=== PATIENT | female | born 1945 | race Caucasian/White ===

== ENCOUNTER 2017-10-16 23:08 | Inpatient (IN) | payer BC, MEDICARE ==
[2017-10-16] MEDS ORDERED: Morphine 4 MG/ML VIAL ONE ×2 (23:20→23:44)
[2017-10-16] MEDS ORDERED: CEFAZOLIN/Water 2 GM/20 ML SYRINGE ONE (23:26)
--- NOTE | 2017-10-16 23:57 | RAD ---
RIGHT KNEE TWO VIEWS 10/16/17 HISTORY: Right knee injury. FINDINGS: Total knee prosthesis is in place without perihardware lucency. Osseous structures are demineralized. No acute fracture or dislocation are apparent. IMPRESSION: 1. Right knee prosthesis is in good radiographic position. No acute osseous abnormalities are de monstrated. 2. Osteoporosis. POS: [facility]
--- NOTE | 2017-10-16 23:59 | RAD ---
LEFT LOWER LEG TWO VIEWS 10/16/17 HISTORY: Fall. Left leg injury. FINDINGS: Comminuted fractures involving the distal tibial and fibular metadiaphyses include full shaft width l ateral displacement of each major distal fragment and prominent apex medial angulation. Soft tissue g as is apparent with an open fracture evident. Osseous structures are demineralized. IMPRESSION: Open fracture distal left lower leg involving the tibia and fibula. POS: [facility]
[2017-10-17] MEDS ORDERED: Midazolam HCl 2 mg/2 ml Vial ONE (00:11)
[2017-10-17] MEDS ORDERED: Fentanyl 250 MCG/5 ML VIAL ONE (00:11)
[2017-10-17 00:20] LABS: #Lymphocytes 1.2 thou/uL (1.20-3.40); #Monocytes 0.5 thou/uL (0.11-0.59); #Neutrophils 10.5 thou/uL (1.40-6.50); %Basophils 0.2 % (0.0-1.0); %Eosinophils 0.2 % (0.0-10.0); %Lymphocytes 9.6 % (21.0-51.0); %Monocytes 4.3 % (0.0-10.0); Hematocrit 36.9 % (36.0-47.0); Mean Platelet Volume 6.5 fL (7.4-10.4); Red Blood Cell (RBC) Count 3.89 mill/uL (4.20-5.40); White Blood Cell (WBC) Count 12.2 thou/uL (4.8-10.8)
[2017-10-17 00:32] LABS: ALT (SGPT) 17 U/L (8-55); AST (SGOT) 17 U/L (5-34); Alkaline Phosphatase 71 U/L (40-150); Anion Gap 13 mmol/L (10-20); BUN (Urea Nitrogen) 21 mg/dL (9.8-20.1); Bilirubin, Total Less than 0.2 mg/dL (0.2-1.2); Calc. Creatinine Clearance 0 mL/min (70-130); Calcium 8.7 mg/dL (7.8-10.44); Carbon Dioxide 21 mmol/L (23-31); Chloride 110 mmol/L (98-107); Estimated GFR-MDRD 80; Globulin 2.4 g/dL (2.4-3.5); Protein, Total 6.3 g/dL (6.0-8.3)
[2017-10-17] MEDS ORDERED: Promethazine HCl 25 MG/ML VIAL IM PRN ×2 (02:26→16:38)
[2017-10-17] MEDS ORDERED: Ondansetron HCl/PF 4 MG/2 ML Vial IVP PRN ×3 (02:26→16:38)
[2017-10-17] MEDS ORDERED: Promethazine HCl 25 MG/ML VIAL SLOW IVP PRN (02:26)
[2017-10-17] MEDS ORDERED: Fentanyl 100 MCG/2 ML VIAL ONE ×2 (02:36→02:52)
[2017-10-17] MEDS ORDERED: Dextrose 50% Abboject 50 ML SYRINGE SLOW IVP PRN (03:11)
[2017-10-17] MEDS ORDERED: Insulin Regular 300 UNITS/3 ML VIAL SC PRN (03:11)
[2017-10-17] MEDS ORDERED: Fleet Enema 133 ML BOT PR PRN (03:11)
[2017-10-17] MEDS ORDERED: traMADol HCl 50 MG TAB PO PRN (03:11)
[2017-10-17] MEDS ORDERED: Bisacodyl 10 MG SUPP PR PRN (03:11)
[2017-10-17] MEDS ORDERED: Milk Of Magnesia 30 ML UDCUP PO PRN (03:11)
[2017-10-17] MEDS ORDERED: Ondansetron ODT 4 MG TAB PO PRN (03:11)
[2017-10-17] MEDS ORDERED: Cepastat Lozenges 1 LOZ PO PRN (03:11)
[2017-10-17] MEDS ORDERED: Acetaminophen 325 MG TAB PO PRN (03:11)
[2017-10-17] MEDS ORDERED: HYDROcodone/Acetaminophen 5/325 mg Tablet PO PRN (03:11)
[2017-10-17 03:55] VITALS: BMI 23.1
[2017-10-17] MEDS: HYDROcodone/Acetaminophen 5/325 mg Tablet PO PRN ×2 (04:27→10:27)
[2017-10-17] MEDS: Sodium Chloride 0.9% 1,000 ML IV SCH ×2 (04:37→16:10)
--- NOTE | 2017-10-17 05:01 | PDOC.PN ---
- Subjective Encounter Start Date: 10/17/17 Encounter Start Time: 04:59 Pt seen for management of medical issues, including diabetes mellitus. Denies chest pain, shortness of breath, fevers or chills. - Objective MAR Reviewed: Yes Vital Signs & Weight: Vital Signs (12 hours) Temp Pulse Resp BP Pulse Ox 10/17/17 03:40 98.1 F 95 20 113/65 99 Weight Weight 135 lb Result Diagrams: 10/17/17 00:07 10/17/17 00:07 Phys Exam - Physical Examination Constitutional: NAD HEENT: moist MMs, sclera anicteric Neck: supple Respiratory: clear to auscultation bilateral Cardiovascular: RRR Gastrointestinal: soft, non-tender s/p L ankle surgery Psychiatric: normal affect Skin: no rash Dx/Plan (1) DM2 (diabetes mellitus, type 2) Status: Chronic (2) Dyslipidemia Code(s): E78.5 - HYPERLIPIDEMIA, UNSPECIFIED Status: Chronic (3) Anxiety disorder Code(s): F41.9 - ANXIETY DISORDER, UNSPECIFIED Status: Chronic - Plan PT/OT, DVT proph w/SCDs * . Continue Toujeo insulin, accuchecks, insulin sliding scale. Pt not on statins due to side effects. Continue Zoloft (dose needs to be clarified, will start at 25 mg for now). Code status: full Review of Systems - Review of Systems Respiratory: negative: Cough, Dry, Shortness of Breath, Hemoptysis, SOB with Excertion, Pleuritic Pain, Sputum, Wheezing Cardiovascular: negative: Chest Pain, Palpitations, Orthopnea, Paroxysmal Noc. Dyspnea, Edema, Light Headedness - Medications/Allergies Allergies/Adverse Reactions: Allergies Allergy/AdvReac Type Severity Reaction Status Date / Time penicillin G Allergy Verified 10/17/17 04:12 Medications: Current Medications Acetaminophen (Tylenol) 650 mg PO Q4H PRN PRN Reason: BECERRA/T> 101F/Mild Pain (1-3) Hydrocodone Bitart/Acetaminophen ([place] 5/325) 1 tab PO Q4H PRN PRN Reason: Pain Hydrocodone Bitart/Acetaminophen ([place] 5/325) 2 tab PO Q4H PRN PRN Reason: Pain Last Admin: 10/17/17 04:27 Dose: 2 tab Bisacodyl (Dulcolax) 10 mg CO DAILYPRN PRN PRN Reason: Constipation Cefazolin Sodium (Ancef) 2 gm SLOW IVP 0800,1600,2359 [facility] Stop: 10/18/17 16:01 Dextrose/Water (Dextrose 50%) 25 gm SLOW IVP PRN PRN PRN Reason: Hypoglycemia Enoxaparin Sodium (Lovenox) 30 mg SC 0900 [facility] Fentanyl (Pacu-Sublimaze) 50 mcg SLOW IVP Q10MIN PRN PRN Reason: Moderate to Severe Pain (6-10) Stop: 10/17/17 05:26 Fentanyl (Sublimaze) 50 mcg SLOW IVP Q20M PRN PRN Reason: Severe Pain (7-10) Ferrous Gluconate (Fergon) 324 mg PO BID [facility] Glucagon (Glucagon) 1 mg IM PRN PRN PRN Reason: Hypoglycemia Sodium Chloride (Normal Saline 0.9%) 1,000 mls @ 65 mls/hr IV .[id number] [facility] Last Admin: 10/17/17 04:37 Dose: Not Given Insulin Human Regular (Humulin R) 0 units SC .MILD SLIDING PRN PRN Reason: Mild Correctional Scale Iron/Minerals/Multivitamins (Theragran M) 1 tab PO DAILY [facility] Magnesium Hydroxide (Milk Of Magnesium) 30 ml PO DAILYPRN PRN PRN Reason: Constipation Ondansetron HCl (Pacu-Zofran) 4 mg IVP ONE PRN PRN Reason: Nausea/Vomiting Stop: 10/17/17 05:26 Ondansetron HCl (Zofran Odt) 4 mg PO Q6H PRN PRN Reason: Nausea/Vomiting Ondansetron HCl (Zofran) 4 mg IVP Q6H PRN PRN Reason: Nausea/Vomiting Pneumococcal Polyvalent Vaccine (Pneumovax 23) 0.5 ml IM .ONCE ONE Stop: 10/17/17 09:01 Promethazine HCl (Pacu-Phenergan) 6.25 mg SLOW IVP ONE PRN PRN Reason: Nausea/Vomiting Stop: 10/17/17 05:26 Promethazine HCl (Pacu-Phenergan) 6.25 mg IM ONE PRN PRN Reason: Nausea/Vomiting Stop: 10/17/17 05:26 Senna/Docusate Sodium (Senokot S) 2 tab PO BID [facility] Sertraline HCl (Zoloft) 25 mg PO DAILY [facility] Sodium Biphosphate/Sodium Phosphate (Fleet Enema) 133 ml CO DAILYPRN PRN PRN Reason: Constipation Sodium Chloride (Flush - Normal Saline) 10 ml IVF PRN PRN PRN Reason: Saline Flush Throat Lozenges (Cepastat Lozenges) 1 jersey PO Q2H PRN PRN Reason: Sore Throat Tramadol HCl (Ultram) 50 mg PO Q6H PRN PRN Reason: Mild Pain (1-3) Tramadol HCl (Ultram) 100 mg PO Q6H PRN PRN Reason: Moderate Pain (4-6)
[2017-10-17] MEDS: Fentanyl 100 MCG/2 ML VIAL SLOW IVP PRN ×7 (06:36→14:33)
[2017-10-17] MEDS: Senokot S 8.6-50 MG TAB PO SCH ×2 (08:46→21:06)
[2017-10-17] MEDS: traMADol HCl 50 MG TAB PO PRN ×2 (08:47→16:05)
[2017-10-17] MEDS: CEFAZOLIN/Water 2 GM/20 ML SYRINGE SLOW IVP SCH ×2 (08:48→16:06)
[2017-10-17] MEDS: Ferrous Gluconate 324 MG TAB PO SCH ×2 (08:48→21:07)
[2017-10-17] MEDS: Enoxaparin Sodium 30 MG/0.3 ML SYRINGE SC SCH (08:54)
[2017-10-17] MEDS: Multivitamin W/ Minerals 1 TAB PO SCH (08:55)
--- NOTE | 2017-10-17 09:01 | RAD ---
INTRAOPERATIVE FLUOROSCOPIC IMAGES LEFT TIBIA AND FIBULA: DATE: 10/17/17. HISTORY: Left tibial and fibular fracture. FINDINGS: Four intraoperative fluoroscopic images of the left tibia and fibula are submitted. There is an exte rnal fixation device overlying the tibia and fibula on the provided images. There is improvement in alignment of the comminuted fracture involving the distal left tibia and fibula. There are metallic densities overlying the proximal tibia as well as the calcaneus. IMPRESSION: External fixation device transfixing the left tibia and fibula with improvement in alignment of the c omminuted fractures distal left tibia and fibula. POS: [facility]
--- NOTE | 2017-10-17 09:28 | PDOC.EVN ---
Event Note - Event Note Event Note: Pt seen and examined. IM team following for medical mamangement .s/p Sx for left ankle fracture. feels well. pain under control. chart ,labs reviewed. Pt educated about ISS prn. Will start her frieda emed of trulicity on Mondays. Pt can take her own. Order AM labs. Will follow.
--- NOTE | 2017-10-17 11:00 | HP ---
CHIEF COMPLAINT: Left lower extremity pain. HISTORY OF PRESENT ILLNESS: Ms. Blanton is a [id number] status post fall approximately 3 feet [place] 7[place]10 on 10/16/2017. She had to drag herself into the house and was unable to call. She waited until family showed up and called the EMS and she was noted to have an open fracture and I was consulted by the emergency medicine for evaluation of open fracture. The patient was seen with severe pain that is 10/10 and resting in bed. The patient was alert and oriented and talking. Given the patient's open fracture as well as radiographic changes, I would await for immediate washout I&D with possible external fixator application of vacuum. The patient and family agreed and elected to proceed. PAST MEDICAL HISTORY: Includes diabetes and osteoporosis. PAST SURGICAL HISTORY: Right total knee arthroplasty and hysterectomy. CURRENT MEDICATIONS: Please see patient's admission full list. ALLERGIES: PENICILLIN, rash. No history of anaphylaxis. SOCIAL HISTORY: Nondrinker, nonsmoker, and retired. The patient lives in [place]. REVIEW OF SYSTEMS: Negative except for left lower extremity. PHYSICAL EXAMINATION: VITAL SIGNS: Afebrile, O2 saturation 98%, pulse rate 85, respiratory rate 18, blood pressure 142/84. GENERAL: Elderly female in no acute distress, resting comfortably in bed. HEENT: Normocephalic, atraumatic. LUNGS: Bilateral symmetric chest rise and unlabored. HEART: Regular rate. ABDOMEN: Soft. EXTREMITIES: Left lower extremity, she had a 6 cm laceration noted on the medial aspect of her tibia with exposed tibia within the wound. She has brisk cap refill, but difficult to palpate pulses. Sensation intact and appeared to be in S1 distribution. She will wiggle and flex her toes. DIAGNOSTIC STUDIES: Radiographs of her left lower extremity showed pilon variant of her left distal tibia with comminuted distal fibular fracture consistent with C type pilon variant AO classification. IMPRESSION: Left open pilon fracture with comminuted fibula and tibia fracture , osteoporotic, diabetic. ASSESSMENT AND PLAN: The patient was taken to the OR for an incision and drainage with an external fixator. The patient received antibiotics, Ancef and tetanus up to date. The patient will be admitted and patient likely will require definitive fixation. Case was discussed with primary care and with the family and the patient consented and was taken emergently to the OR for definitive care. LULY
[2017-10-17] MEDS ORDERED: HYDROcodone/Acetaminophen 10/325 mg Tablet PO PRN ×2 (11:15)
[2017-10-17] MEDS ORDERED: Zolpidem Tartrate 5 MG TAB PO PRN ×2 (11:16→16:38)
[2017-10-17] MEDS ORDERED: diphenhydrAMINE 25 MG CAP PO PRN ×2 (11:16→16:38)
[2017-10-17] MEDS: Cyclobenzaprine 10 MG TAB PO PRN (11:45)
--- NOTE | 2017-10-17 12:19 | OP ---
DATE OF PROCEDURE: 10/17/2017 PREOPERATIVE DIAGNOSES: Left distal tibia fracture, distal fibular fracture with comminution in distal tibial plafond, fibula and tibia comminution with open Gustilo-Milton grade II fracture, 6 cm laceration. POSTOPERATIVE DIAGNOSIS: Left distal tibia fracture, distal fibular fracture with comminuted distal tibial plafond, fibula and tibia comminution with open Gustilo-Milton grade II fracture, 6 cm laceration. PROCEDURES PERFORMED: 1. I&D open fracture. 2. External fixator uniplane. 3. Closure of 6 cm laceration. 4. Application of skin incisional wound VAC. STAFF: Ayden Herbert M.D. BROKERAGE COORDINATOR: None. ANESTHESIA: Dr. Braden. The patient received general endotracheal intubation. ESTIMATED BLOOD LOSS: 75 mL. TOURNIQUET TIME: None. IMPLANTS: Two 5-0 pins, a 6-hole combi clamp, 2 pin-to-bar clamps and a calcaneal pin. ANTIBIOTICS: Ancef 2 grams. COMPLICATIONS: None. HISTORY OF PRESENT ILLNESS: Ms. Blanton is a 71-year-old female who fell at 7:10 yesterday evening sustaining an open fracture. The patient did so herself and states that she did not get urine or feces into the wound. The patient has history of diabetes as well as osteoporosis. The patient's family was gone. She was babysitting a 1-year-old, and she hurt her leg and could not get to the phone until her family got home. The patient presented with elevated pain. She has soft compartments. I discussed with the family given the chronicity and the concern, plan would be for an I&D of the wound, likely an external fixator with multiplanar and closure of the wound with delayed fixation. I showed the pictures to the family. I discussed the severity of injury as well as the patient's bone density. I discussed risks and benefits of surgery, pain , scar. I discussed that there are risks include need for further surgery, should not be the definitive fixation, there is risk of pin site issues and we emergently went to the OR to help to reduce and decrease the patient's pain. PROCEDURE NOTE: After a timeout was performed designating the patient's, left lower extremity as the operative site based on sight, consents, markings. The patient's leg was prepped with Betadine and copiously irrigated the wound with 10 liters of water. I used a curette to curette the bone. I saw no gross debris within the wound, it appeared completely clean. There was an oblique wound at the fracture site about 1.5 cm above the medial malleolus. There were some skin narrowing. I was concerned about doing definitive fixation at this time tonight because of the soft tissue envelope, I would like to see demarcation before we progress. The patient has severe comminution of the distal tibia as well as some intra-articular split of the tibial plafond. There was also severe comminution of the fibula from just a twisting fall like for soft tissue rest. She likely needs a large plating system and need to ensure that we have good soft tissue envelope for her left ankle. After washing, she was feeling grossly stable. We moved distally from the medial aspect, localized position within the calcaneus, but my position was ensured that I was in line with the distal ankle. I liked he overall alignment and drilled the pin through a stab incision laterally, passed it through, ensured we had good fixation of the calcaneus, I then moved proximally. Just off the medial border of the iliac crest, I placed two 5-0 pins, I used my 6-hole clamp. I made stab incisions, drilled bicortically and placed my self-drilling self-tapping screws and after placing 5 mm pins within my 6-hole clamp, after that we then placed 4 mm rods from the pin-to-bar clamps on the calcaneal pins to the 6-hole clamp. We pulled the patient into traction dorsiflexing her foot, showing on AP and lateral radiographs that she had regained length. She had so much severe comminution, it was hard to keep her stable on varus and valgus, what we felt we had to reduce her in an adequate position, we clamped down and closed it into place tightening all positions on the splint. Being happy with this, we then washed 100 cc more through the wound and used trauma stitches to close the incision medially, had a nice closure without significant skin tension, we placed an incisional wound VAC in place and placed a posterior splint to keep the patient in dorsiflexion, put some padding behind her heel. The patient will receive 48 hours of antibiotics. She will receive Ancef 2 grams q.8 hours x48 hours. The patient will be placed in a posterior splint with a heel pad. We would like to remove the incision wound VAC in 2 days. Discussed the definitive care with my trauma partners. LULY
[2017-10-17] MEDS ORDERED: diphenhydrAMINE 50 MG/ML VIAL IM PRN (16:38)
[2017-10-17] MEDS ORDERED: diphenhydrAMINE 50 MG/ML VIAL IVP PRN (16:38)
[2017-10-17] MEDS ORDERED: Fentanyl 5000 MCG/250 ML CADD IVPB PRN (16:38)
[2017-10-17] MEDS ORDERED: Naloxone HCl 0.4 mg/ml Vial IV PRN (16:38)
[2017-10-17] MEDS ORDERED: Communication Order-Pharmacy FS SCH (16:45)
[2017-10-17] MEDS ORDERED: PHENYLEPHRINE-NS 100 MCG/ML 10 ML SYRINGE ONE (17:14)
[2017-10-17] MEDS ORDERED: ePHEDrine/0.9% NaCl/PF SYRINGE 50 mg/10 ml ONE (17:14)
[2017-10-17] MEDS ORDERED: Lidocaine 1% PF 5 ML VIAL ONE (17:14)
[2017-10-17] MEDS ORDERED: Propofol 200 MG/20 ML VIAL ONE (17:14)
[2017-10-17] MEDS ORDERED: Succinylcholine Chloride 20 MG/ML 10 ml SYRINGE FS ONE (17:14)
[2017-10-17] MEDS ORDERED: diphenhydrAMINE 50 MG/ML VIAL ONE (17:14)
[2017-10-17] MEDS ORDERED: Ondansetron HCl/PF 4 MG/2 ML Vial ONE (17:14)
[2017-10-18] MEDS: CEFAZOLIN/Water 2 GM/20 ML SYRINGE SLOW IVP SCH ×3 (00:29→16:30)
[2017-10-18 05:13] LABS: #Lymphocytes 1.3 thou/uL (1.20-3.40); #Monocytes 0.6 thou/uL (0.11-0.59); #Neutrophils 5.2 thou/uL (1.40-6.50); %Basophils 0.5 % (0.0-1.0); %Eosinophils 0.4 % (0.0-10.0); %Lymphocytes 18.2 % (21.0-51.0); %Monocytes 8.1 % (0.0-10.0); Mean Platelet Volume 6.2 fL (7.4-10.4); Red Blood Cell (RBC) Count 3.23 mill/uL (4.20-5.40); White Blood Cell (WBC) Count 7.2 thou/uL (4.8-10.8)
[2017-10-18 05:33] LABS: Anion Gap 9 mmol/L (10-20); BUN (Urea Nitrogen) 5 mg/dL (9.8-20.1); Calc. Creatinine Clearance 79 mL/min (70-130); Calcium 8.4 mg/dL (7.8-10.44); Carbon Dioxide 26 mmol/L (23-31); Chloride 106 mmol/L (98-107); Estimated GFR-MDRD 90
[2017-10-18] MEDS: Sodium Chloride 0.9% 1,000 ML IV SCH ×2 (06:18→20:20)
[2017-10-18] MEDS: Senokot S 8.6-50 MG TAB PO SCH ×3 (08:56→20:19)
[2017-10-18] MEDS: Ferrous Gluconate 324 MG TAB PO SCH ×2 (08:56→20:19)
[2017-10-18] MEDS: Enoxaparin Sodium 30 MG/0.3 ML SYRINGE SC SCH (08:56)
[2017-10-18] MEDS: Multivitamin W/ Minerals 1 TAB PO SCH (09:10)
[2017-10-18] MEDS ORDERED: Naloxone HCl 0.4 mg/ml Vial IV PRN (09:28)
[2017-10-18] MEDS ORDERED: diphenhydrAMINE 50 MG/ML VIAL IM/IV PRN (09:28)
[2017-10-18] MEDS ORDERED: Zolpidem Tartrate 5 MG TAB PO PRN (09:28)
[2017-10-18] MEDS ORDERED: Promethazine HCl 25 MG/ML VIAL IM PRN (09:28)
[2017-10-18] MEDS ORDERED: diphenhydrAMINE 25 MG CAP PO PRN (09:28)
[2017-10-18] MEDS: Morphine CADD 1 MG/ML CADD IV PRN (11:04)
--- NOTE | 2017-10-18 11:10 | PDOC.PN ---
- Subjective Encounter Start Date: 10/18/17 Encounter Start Time: 11:09 Subjective: c/o poor sleep and much pain. -: no N/V.no CP/SOB.no fever/chills - Objective MAR Reviewed: Yes Vital Signs & Weight: Vital Signs (12 hours) Temp Pulse Resp BP Pulse Ox 10/18/17 08:00 98.1 F 91 20 106/59 L 94 L 10/18/17 04:22 98.8 F 94 18 116/66 94 L 10/18/17 00:15 98.9 F 87 18 113/71 92 L Weight Admit Weight 135 lb Weight 135 lb I&O: 10/17/17 10/18/17 10/19/17 06:59 06:59 06:59 Intake Total 1740 Output Total 2700 Balance -960 Result Diagrams: 10/18/17 04:36 10/18/17 04:36 Additional Labs: Accuchecks 10/18/17 10/17/17 10/17/17 05:56 20:31 16:09 POC Glucose 127 H 137 H 104 10/17/17 10:54 POC Glucose 112 H Phys Exam - Physical Examination Constitutional: NAD HEENT: PERRLA, moist MMs, sclera anicteric, oral pharynx no lesions Neck: no nodes, no JVD, supple, full ROM Respiratory: no wheezing, no rales, no rhonchi, clear to auscultation bilateral Cardiovascular: RRR, no significant murmur Gastrointestinal: soft, non-tender, no distention, positive bowel sounds Musculoskeletal: no edema, pulses present Neurological: non-focal, normal sensation, moves all 4 limbs Psychiatric: normal affect, A&O x 3 Skin: no rash Dx/Plan (1) Status post ORIF of fracture of ankle Code(s): Z96.7 - PRESENCE OF OTHER BONE AND TENDON IMPLANTS; Z87.81 - PERSONAL HISTORY OF (HEALED) TRAUMATIC FRACTURE Status: Acute (2) Anxiety disorder Code(s): F41.9 - ANXIETY DISORDER, UNSPECIFIED Status: Chronic (3) DM2 (diabetes mellitus, type 2) Status: Chronic (4) Dyslipidemia Code(s): E78.5 - HYPERLIPIDEMIA, UNSPECIFIED Status: Chronic - Plan DVT proph w/SCDs RECYCLING SORTER changed to Morphine.Anesthesia following. -: labs,vitals stable. did not need Insulin so far.sugars controled -: cont Trulicity. next dose tomorrow.. -: will follow * . Review of Systems - Review of Systems Constitutional: negative: Fever, Chills, Sweats, Weakness, Malaise, Other Respiratory: negative: Cough, Dry, Shortness of Breath, Hemoptysis, SOB with Excertion, Pleuritic Pain, Sputum, Wheezing Cardiovascular: negative: Chest Pain, Palpitations, Orthopnea, Paroxysmal Noc. Dyspnea, Edema, Light Headedness, Other Gastrointestinal: negative: Nausea, Vomiting, Abdominal Pain, Diarrhea, Constipation, Melena, Hematochezia, Other Genitourinary: negative: Dysuria, Frequency, Incontinence, Hematuria, Retention , Other Musculoskeletal: negative: Neck Pain, Shoulder Pain, Arm Pain, Back Pain, Hand Pain, Leg Pain, Foot Pain, Other Neurological: negative: Weakness, Numbness, Incoordination, Change in Speech, Confusion, Seizures, Other - Medications/Allergies Allergies/Adverse Reactions: Allergies Allergy/AdvReac Type Severity Reaction Status Date / Time penicillin G Allergy Verified 10/17/17 04:12 Medications: Current Medications Acetaminophen (Tylenol) 650 mg PO Q4H PRN PRN Reason: BECERRA/T> 101F/Mild Pain (1-3) Bisacodyl (Dulcolax) 10 mg DE DAILYPRN PRN PRN Reason: Constipation Cefazolin Sodium (Ancef) 2 gm SLOW IVP 0800,1600,2359 [facility] Stop: 10/18/17 16:01 Last Admin: 10/18/17 08:55 Dose: 2 gm Cyclobenzaprine HCl (Flexeril) 10 mg PO TID PRN PRN Reason: Muscle Spasm Last Admin: 10/17/17 11:45 Dose: 10 mg Dextrose/Water (Dextrose 50%) 25 gm SLOW IVP PRN PRN PRN Reason: Hypoglycemia Diphenhydramine HCl (Benadryl) 25 mg IM/IV Q3H PRN PRN Reason: Itching Diphenhydramine HCl (Benadryl) 25 mg PO Q3H PRN PRN Reason: Itching Enoxaparin Sodium (Lovenox) 30 mg SC 0900 [facility] Last Admin: 10/18/17 08:56 Dose: 30 mg Ferrous Gluconate (Fergon) 324 mg PO BID [facility] Last Admin: 10/18/17 08:56 Dose: 324 mg Glucagon (Glucagon) 1 mg IM PRN PRN PRN Reason: Hypoglycemia Sodium Chloride (Normal Saline 0.9%) 1,000 mls @ 65 mls/hr IV .[id number] [facility] Last Admin: 10/18/17 06:18 Dose: 1,000 mls Insulin Human Regular (Humulin R) 0 units SC .MILD SLIDING PRN PRN Reason: Mild Correctional Scale Iron/Minerals/Multivitamins (Theragran M) 1 tab PO DAILY [facility] Last Admin: 10/18/17 09:10 Dose: 1 tab Ketorolac Tromethamine (Toradol) 15 mg IVP Q6H PRN PRN Reason: Moderate Pain 4-6 Stop: 10/21/17 09:29 Magnesium Hydroxide (Milk Of Magnesium) 30 ml PO DAILYPRN PRN PRN Reason: Constipation Morphine Sulfate (Morphine Cadd) 0 mg IV INF PRN PRN Reason: Pain Naloxone HCl (Narcan) 0.2 mg IV Q5MIN PRN PRN Reason: RR <8 or pt obtun/unarousable Ondansetron HCl (Zofran) 4 mg IVP Q6H PRN PRN Reason: Nausea/Vomiting Dulaglutide ( (Trulicity)) 0 each SC Mo@0900 [facility] Promethazine HCl (Phenergan) 12.5 mg IM Q4H PRN PRN Reason: Nausea/Vomiting Senna/Docusate Sodium (Senokot S) 2 tab PO BID [facility] Last Admin: 10/18/17 09:08 Dose: Not Given Sertraline HCl (Zoloft) 25 mg PO DAILY [facility] Last Admin: 10/18/17 08:56 Dose: 25 mg Sodium Biphosphate/Sodium Phosphate (Fleet Enema) 133 ml DE DAILYPRN PRN PRN Reason: Constipation Sodium Chloride (Flush - Normal Saline) 10 ml IVF PRN PRN PRN Reason: Saline Flush Throat Lozenges (Cepastat Lozenges) 1 jersey PO Q2H PRN PRN Reason: Sore Throat Zolpidem Tartrate (Ambien) 5 mg PO HSPRN PRN PRN Reason: Insomnia
[2017-10-18] MEDS: Ketorolac Tromethamine 30 MG/ML VIAL IVP PRN ×2 (14:00→20:15)
[2017-10-18] MEDS: Ondansetron HCl/PF 4 MG/2 ML Vial IVP PRN (19:51)
[2017-10-19] MEDS: Ketorolac Tromethamine 30 MG/ML VIAL IVP PRN (02:12)
[2017-10-19] MEDS ORDERED: DULAGLUTIDE (TRULICITY) SC SCH (09:00)
[2017-10-19] MEDS: Multivitamin W/ Minerals 1 TAB PO SCH (09:06)
[2017-10-19] MEDS: Senokot S 8.6-50 MG TAB PO SCH ×2 (09:06→21:33)
[2017-10-19] MEDS: Ferrous Gluconate 324 MG TAB PO SCH ×2 (09:06→21:30)
[2017-10-19] MEDS: Enoxaparin Sodium 30 MG/0.3 ML SYRINGE SC SCH (09:08)
[2017-10-19] MEDS: Ondansetron HCl/PF 4 MG/2 ML Vial IVP PRN (10:05)
--- NOTE | 2017-10-19 11:46 | PDOC.PN ---
- Subjective Encounter Start Date: 10/19/17 Encounter Start Time: 11:45 Subjective: feels much better. pain under better control. -: no N/V/D.no chest pain/sob - Objective MAR Reviewed: Yes Vital Signs & Weight: Vital Signs (12 hours) Temp Pulse Resp BP Pulse Ox 10/19/17 09:00 98.9 F 89 18 10/19/17 07:40 98.9 F 89 18 113/45 L 95 10/19/17 04:00 97.4 F L 88 16 109/69 70 L 10/19/17 00:00 98.6 F 89 16 114/64 91 L Weight Admit Weight 135 lb Weight 135 lb I&O: 10/18/17 10/19/17 10/20/17 06:59 06:59 06:59 Intake Total 1740 3030 Output Total 2700 3100 Balance -960 -70 Result Diagrams: 10/18/17 04:36 10/18/17 04:36 Additional Labs: Accuchecks 10/19/17 10/19/17 10/18/17 10:26 05:35 20:24 POC Glucose 112 H 105 123 H 10/18/17 15:53 POC Glucose 175 H Phys Exam - Physical Examination Constitutional: NAD HEENT: PERRLA, moist MMs, sclera anicteric, oral pharynx no lesions Neck: no nodes, no JVD, supple, full ROM Respiratory: no wheezing, no rales, no rhonchi, clear to auscultation bilateral Cardiovascular: RRR, no significant murmur Gastrointestinal: soft, non-tender, no distention, positive bowel sounds Musculoskeletal: no edema, pulses present Post-op Left ankle w screws/rubin Neurological: non-focal, normal sensation, moves all 4 limbs Psychiatric: normal affect, A&O x 3 Dx/Plan (1) Status post ORIF of fracture of ankle Code(s): Z96.7 - PRESENCE OF OTHER BONE AND TENDON IMPLANTS; Z87.81 - PERSONAL HISTORY OF (HEALED) TRAUMATIC FRACTURE Status: Acute (2) Anxiety disorder Code(s): F41.9 - ANXIETY DISORDER, UNSPECIFIED Status: Chronic (3) DM2 (diabetes mellitus, type 2) Status: Chronic (4) Dyslipidemia Code(s): E78.5 - HYPERLIPIDEMIA, UNSPECIFIED Status: Chronic - Plan plan discussed w/ family, DVT proph w/lovenox, DVT proph w/SCDs blood sugar controlled.Take Trulicity today. ISS and accuchecks. -: Pain meds, rehab per primary team. -: hemodynamically stable. monitor. on BAR TACKER -: DVT prophylaxis w Lovenox Subq * . Review of Systems - Review of Systems Constitutional: Weakness. negative: Fever, Chills, Sweats, Malaise, Other Respiratory: negative: Cough, Dry, Shortness of Breath, Hemoptysis, SOB with Excertion, Pleuritic Pain, Sputum, Wheezing Cardiovascular: negative: Chest Pain, Palpitations, Orthopnea, Paroxysmal Noc. Dyspnea, Edema, Light Headedness, Other Gastrointestinal: negative: Nausea, Vomiting, Abdominal Pain, Diarrhea, Constipation, Melena, Hematochezia, Other Genitourinary: negative: Dysuria, Frequency, Incontinence, Hematuria, Retention , Other Musculoskeletal: negative: Neck Pain, Shoulder Pain, Arm Pain, Back Pain, Hand Pain, Leg Pain, Foot Pain, Other Neurological: negative: Weakness, Numbness, Incoordination, Change in Speech, Confusion, Seizures, Other - Medications/Allergies Allergies/Adverse Reactions: Allergies Allergy/AdvReac Type Severity Reaction Status Date / Time penicillin G Allergy Verified 10/17/17 04:12 Medications: Current Medications Acetaminophen (Tylenol) 650 mg PO Q4H PRN PRN Reason: BECERRA/T> 101F/Mild Pain (1-3) Bisacodyl (Dulcolax) 10 mg IN DAILYPRN PRN PRN Reason: Constipation Cyclobenzaprine HCl (Flexeril) 10 mg PO TID PRN PRN Reason: Muscle Spasm Last Admin: 10/17/17 11:45 Dose: 10 mg Dextrose/Water (Dextrose 50%) 25 gm SLOW IVP PRN PRN PRN Reason: Hypoglycemia Diphenhydramine HCl (Benadryl) 25 mg IM/IV Q3H PRN PRN Reason: Itching Diphenhydramine HCl (Benadryl) 25 mg PO Q3H PRN PRN Reason: Itching Enoxaparin Sodium (Lovenox) 30 mg SC 0900 [facility] Last Admin: 10/19/17 09:08 Dose: 30 mg Ferrous Gluconate (Fergon) 324 mg PO BID [facility] Last Admin: 10/19/17 09:06 Dose: 324 mg Glucagon (Glucagon) 1 mg IM PRN PRN PRN Reason: Hypoglycemia Sodium Chloride (Normal Saline 0.9%) 1,000 mls @ 65 mls/hr IV .[id number] [facility] Last Admin: 10/18/17 20:20 Dose: 1,000 mls Insulin Human Regular (Humulin R) 0 units SC .MILD SLIDING PRN PRN Reason: Mild Correctional Scale Iron/Minerals/Multivitamins (Theragran M) 1 tab PO DAILY [facility] Last Admin: 10/19/17 09:06 Dose: 1 tab Ketorolac Tromethamine (Toradol) 15 mg IVP Q6H PRN PRN Reason: Moderate Pain 4-6 Stop: 10/21/17 09:29 Last Admin: 10/19/17 02:12 Dose: 15 mg Magnesium Hydroxide (Milk Of Magnesium) 30 ml PO DAILYPRN PRN PRN Reason: Constipation Morphine Sulfate (Morphine Cadd) 0 mg IV INF PRN PRN Reason: Pain Last Admin: 10/18/17 11:04 Dose: 100 mg Naloxone HCl (Narcan) 0.2 mg IV Q5MIN PRN PRN Reason: RR <8 or pt obtun/unarousable Ondansetron HCl (Zofran) 4 mg IVP Q6H PRN PRN Reason: Nausea/Vomiting Last Admin: 10/19/17 10:05 Dose: 4 mg Dulaglutide ( (Trulicity)) 0 each SC Mo@0900 [facility] Promethazine HCl (Phenergan) 12.5 mg IM Q4H PRN PRN Reason: Nausea/Vomiting Senna/Docusate Sodium (Senokot S) 2 tab PO BID [facility] Last Admin: 10/19/17 09:06 Dose: Not Given Sertraline HCl (Zoloft) 25 mg PO DAILY [facility] Last Admin: 10/19/17 09:06 Dose: 25 mg Sodium Biphosphate/Sodium Phosphate (Fleet Enema) 133 ml IN DAILYPRN PRN PRN Reason: Constipation Sodium Chloride (Flush - Normal Saline) 10 ml IVF PRN PRN PRN Reason: Saline Flush Last Admin: 10/19/17 09:06 Dose: 10 ml Throat Lozenges (Cepastat Lozenges) 1 jersey PO Q2H PRN PRN Reason: Sore Throat Zolpidem Tartrate (Ambien) 5 mg PO HSPRN PRN PRN Reason: Insomnia
[2017-10-19] MEDS: Simethicone Chewable 80 MG TAB PO PRN (15:47)
[2017-10-19] MEDS: Sodium Chloride 0.9% 1,000 ML IV SCH (15:47)
[2017-10-20] MEDS: Cyclobenzaprine 10 MG TAB PO PRN ×3 (02:26→18:16)
[2017-10-20] MEDS: Morphine CADD 1 MG/ML CADD IV PRN (02:48)
[2017-10-20] MEDS ORDERED: CEFAZOLIN/Water 2 GM/20 ML SYRINGE SLOW IVP SCH (08:45)
[2017-10-20] MEDS: Senokot S 8.6-50 MG TAB PO SCH ×2 (09:01→21:24)
[2017-10-20] MEDS: Ferrous Gluconate 324 MG TAB PO SCH ×2 (09:01→21:24)
[2017-10-20] MEDS: Enoxaparin Sodium 30 MG/0.3 ML SYRINGE SC SCH (09:01)
[2017-10-20] MEDS: Multivitamin W/ Minerals 1 TAB PO SCH (09:01)
[2017-10-20] MEDS: Sodium Chloride 0.9% 1,000 ML IV SCH ×2 (09:02→18:20)
[2017-10-20 09:10] LABS: #Eosinphils 0.1 thou/uL (0.0-0.7); #Lymphocytes 1.1 thou/uL (1.20-3.40); #Monocytes 0.5 thou/uL (0.11-0.59); #Neutrophils 5.9 thou/uL (1.40-6.50); %Eosinophils 0.8 % (0.0-10.0); %Lymphocytes 14.3 % (21.0-51.0); %Monocytes 6.9 % (0.0-10.0); Mean Platelet Volume 6.5 fL (7.4-10.4); Red Blood Cell (RBC) Count 3.23 mill/uL (4.20-5.40); White Blood Cell (WBC) Count 7.6 thou/uL (4.8-10.8)
[2017-10-20] MEDS: Acetaminophen 325 MG TAB PO SCH ×2 (13:16→18:09)
--- NOTE | 2017-10-20 13:42 | PDOC.PN ---
- Subjective Encounter Start Date: 10/20/17 Encounter Start Time: 13:40 Subjective: feels better. no new complaints. poor appetite. -: pain under better control - Objective MAR Reviewed: Yes Vital Signs & Weight: Vital Signs (12 hours) Temp Pulse Resp BP Pulse Ox 10/20/17 11:13 98.6 F 75 14 108/56 L 91 L 10/20/17 07:50 98.9 F 87 14 94 L 10/20/17 07:27 98.9 F 87 14 111/67 94 L 10/20/17 04:56 98.3 F 88 18 108/58 L 92 L Weight Admit Weight 135 lb Weight 135 lb I&O: 10/19/17 10/20/17 10/21/17 06:59 06:59 06:59 Intake Total 3030 1865 Output Total 3100 Balance -70 1865 Result Diagrams: 10/23/17 07:44 10/21/17 04:59 Additional Labs: Accuchecks 10/20/17 10/20/17 10/19/17 10:53 05:58 21:56 POC Glucose 135 H 117 H 157 H 10/19/17 15:30 POC Glucose 138 H Phys Exam - Physical Examination Constitutional: NAD HEENT: PERRLA, moist MMs, sclera anicteric, oral pharynx no lesions Neck: no nodes, no JVD, supple, full ROM Respiratory: no wheezing, no rales, no rhonchi, clear to auscultation bilateral Cardiovascular: RRR, no significant murmur Gastrointestinal: soft, non-tender, no distention, positive bowel sounds Musculoskeletal: no edema, pulses present Neurological: non-focal, normal sensation, moves all 4 limbs Psychiatric: normal affect, A&O x 3 Skin: no rash Dx/Plan (1) Anxiety disorder Code(s): F41.9 - ANXIETY DISORDER, UNSPECIFIED Status: Chronic (2) DM2 (diabetes mellitus, type 2) Status: Chronic Comment: BS satisfactory. (3) Dyslipidemia Code(s): E78.5 - HYPERLIPIDEMIA, UNSPECIFIED Status: Chronic (4) Open fracture of left distal fibula Code(s): S82.832B - OTH FX UPPER AND LOW END L FIBULA, INIT FOR OPN FX TYPE I/2 Status: Acute (5) Open fracture of left distal tibia Code(s): S82.302B - UNSP FX LOWER END OF LEFT TIBIA, INIT FOR OPN FX TYPE I/2 Status: Acute - Plan DVT proph w/SCDs cont current care. blood sugar and BP controlled. -: to OR tomorrow per primary team. -: on Morphine TRY ON BASTER. -: encouraged PO intake. -: will order am pre-op labs * . Review of Systems - Review of Systems Constitutional: Weakness, Malaise. negative: Fever, Chills, Sweats, Other Respiratory: negative: Cough, Dry, Shortness of Breath, Hemoptysis, SOB with Excertion, Pleuritic Pain, Sputum, Wheezing Cardiovascular: negative: Chest Pain, Palpitations, Orthopnea, Paroxysmal Noc. Dyspnea, Edema, Light Headedness, Other Gastrointestinal: negative: Nausea, Vomiting, Abdominal Pain, Diarrhea, Constipation, Melena, Hematochezia, Other Genitourinary: negative: Dysuria, Frequency, Incontinence, Hematuria, Retention , Other Musculoskeletal: negative: Neck Pain, Shoulder Pain, Arm Pain, Back Pain, Hand Pain, Leg Pain, Foot Pain, Other Neurological: negative: Weakness, Numbness, Incoordination, Change in Speech, Confusion, Seizures, Other - Medications/Allergies Allergies/Adverse Reactions: Allergies Allergy/AdvReac Type Severity Reaction Status Date / Time adhesive Allergy Mild Rash Verified 10/19/17 19:06 penicillin G Allergy Verified 10/17/17 04:12 Medications: Current Medications Acetaminophen (Tylenol) 650 mg PO Q4H PRN PRN Reason: BECERRA/T> 101F/Mild Pain (1-3) Acetaminophen (Tylenol) 650 mg PO Q6H [facility] Last Admin: 10/20/17 13:16 Dose: 650 mg Bisacodyl (Dulcolax) 10 mg [place] DAILYPRN PRN PRN Reason: Constipation Cefazolin Sodium (Ancef) 2 gm SLOW IVP WILLCALL [facility] Stop: 10/21/17 08:46 Cyclobenzaprine HCl (Flexeril) 10 mg PO TID PRN PRN Reason: Muscle Spasm Last Admin: 10/20/17 09:01 Dose: 10 mg Dextrose/Water (Dextrose 50%) 25 gm SLOW IVP PRN PRN PRN Reason: Hypoglycemia Diphenhydramine HCl (Benadryl) 25 mg IM/IV Q3H PRN PRN Reason: Itching Diphenhydramine HCl (Benadryl) 25 mg PO Q3H PRN PRN Reason: Itching Last Admin: 10/19/17 18:51 Dose: 25 mg Enoxaparin Sodium (Lovenox) 30 mg SC 0900 [facility] Last Admin: 10/20/17 09:01 Dose: 30 mg Ferrous Gluconate (Fergon) 324 mg PO BID [facility] Last Admin: 10/20/17 09:01 Dose: 324 mg Glucagon (Glucagon) 1 mg IM PRN PRN PRN Reason: Hypoglycemia Sodium Chloride (Normal Saline 0.9%) 1,000 mls @ 65 mls/hr IV .[id number] [facility] Last Admin: 10/20/17 09:02 Dose: Not Given Insulin Human Regular (Humulin R) 0 units SC .MILD SLIDING PRN PRN Reason: Mild Correctional Scale Iron/Minerals/Multivitamins (Theragran M) 1 tab PO DAILY [facility] Last Admin: 10/20/17 09:01 Dose: 1 tab Ketorolac Tromethamine (Toradol) 15 mg IVP Q6H PRN PRN Reason: Moderate Pain 4-6 Stop: 10/21/17 09:29 Last Admin: 10/19/17 02:12 Dose: 15 mg Magnesium Hydroxide (Milk Of Magnesium) 30 ml PO DAILYPRN PRN PRN Reason: Constipation Morphine Sulfate (Morphine Cadd) 0 mg IV INF PRN PRN Reason: Pain Last Admin: 10/20/17 02:48 Dose: 100 mg Naloxone HCl (Narcan) 0.2 mg IV Q5MIN PRN PRN Reason: RR <8 or pt obtun/unarousable Ondansetron HCl (Zofran) 4 mg IVP Q6H PRN PRN Reason: Nausea/Vomiting Last Admin: 10/19/17 10:05 Dose: 4 mg Dulaglutide ( (Trulicity)) 0 each SC Mo@0900 [facility] Promethazine HCl (Phenergan) 12.5 mg IM Q4H PRN PRN Reason: Nausea/Vomiting Senna/Docusate Sodium (Senokot S) 2 tab PO BID [facility] Last Admin: 10/20/17 09:01 Dose: Not Given Sertraline HCl (Zoloft) 25 mg PO DAILY [facility] Last Admin: 10/20/17 09:00 Dose: 25 mg Simethicone (Mylicon Chewable) 80 mg PO QID PRN PRN Reason: GAS PAIN Last Admin: 10/19/17 15:47 Dose: 80 mg Sodium Biphosphate/Sodium Phosphate (Fleet Enema) 133 ml [place] DAILYPRN PRN PRN Reason: Constipation Sodium Chloride (Flush - Normal Saline) 10 ml IVF PRN PRN PRN Reason: Saline Flush Last Admin: 10/19/17 09:06 Dose: 10 ml Throat Lozenges (Cepastat Lozenges) 1 jersey PO Q2H PRN PRN Reason: Sore Throat Zolpidem Tartrate (Ambien) 5 mg PO HSPRN PRN PRN Reason: Insomnia
[2017-10-21] MEDS: Acetaminophen 325 MG TAB PO SCH ×5 (02:27→23:39)
[2017-10-21 05:35] LABS: #Eosinphils 0.1 thou/uL (0.0-0.7); #Lymphocytes 1.1 thou/uL (1.20-3.40); #Monocytes 0.6 thou/uL (0.11-0.59); #Neutrophils 4.7 thou/uL (1.40-6.50); %Basophils 0.3 % (0.0-1.0); %Eosinophils 1.7 % (0.0-10.0); %Lymphocytes 17.1 % (21.0-51.0); %Monocytes 8.6 % (0.0-10.0); Hematocrit 28.9 % (36.0-47.0); Mean Platelet Volume 6.8 fL (7.4-10.4); Red Blood Cell (RBC) Count 3.05 mill/uL (4.20-5.40); White Blood Cell (WBC) Count 6.6 thou/uL (4.8-10.8)
[2017-10-21 05:41] LABS: Anion Gap 9 mmol/L (10-20); BUN (Urea Nitrogen) 8 mg/dL (9.8-20.1); Calc. Creatinine Clearance 99 mL/min (70-130); Calcium 8.4 mg/dL (7.8-10.44); Carbon Dioxide 28 mmol/L (23-31); Chloride 107 mmol/L (98-107); Estimated GFR-MDRD Greater than 90
[2017-10-21] MEDS: Enoxaparin Sodium 30 MG/0.3 ML SYRINGE SC SCH (09:43)
[2017-10-21] MEDS: Ferrous Gluconate 324 MG TAB PO SCH ×2 (09:44→21:01)
[2017-10-21] MEDS: Senokot S 8.6-50 MG TAB PO SCH ×2 (09:44→21:01)
[2017-10-21] MEDS: Multivitamin W/ Minerals 1 TAB PO SCH (09:44)
[2017-10-21] MEDS ORDERED: CEFAZOLIN/Water 2 GM/20 ML SYRINGE ONE (11:27)
[2017-10-21] MEDS ORDERED: Fentanyl 250 MCG/5 ML VIAL ONE (12:58)
[2017-10-21] MEDS ORDERED: Ondansetron HCl/PF 4 MG/2 ML Vial IVP PRN ×2 (15:01→16:43)
[2017-10-21] MEDS ORDERED: Meperidine HCl/PF 25 MG/ML VIAL SLOW IVP PRN (15:01)
[2017-10-21] MEDS ORDERED: Promethazine HCl 25 MG/ML VIAL IM PRN ×2 (15:01→15:56)
[2017-10-21] MEDS ORDERED: Promethazine HCl 25 MG/ML VIAL SLOW IVP PRN (15:01)
[2017-10-21] MEDS ORDERED: Fentanyl 100 MCG/2 ML VIAL ONE ×3 (15:05→15:51)
--- NOTE | 2017-10-21 15:14 | PDOC.PN ---
- Subjective Encounter Start Date: 10/21/17 Encounter Start Time: 15:12 Subjective: going to OR today fpor definitive surgery -: pain controlled.on and off nausea w/o vomiting/diarrhea/AP -: no dysuria - Objective MAR Reviewed: Yes Vital Signs & Weight: Vital Signs (12 hours) Temp Pulse Pulse Resp BP BP Pulse Ox 10/21/17 11:55 98.6 F 77 16 122/60 98 10/21/17 09:20 86 111/60 10/21/17 08:50 98.7 F 78 20 113/56 L 94 L 10/21/17 08:00 98.6 F 77 16 Pulse Ox 10/21/17 11:55 10/21/17 09:20 95 10/21/17 08:50 10/21/17 08:00 Weight Admit Weight 135 lb Weight 135 lb I&O: 10/20/17 10/21/17 10/22/17 06:59 06:59 06:59 Intake Total 1865 2410 Balance 1865 2410 Result Diagrams: 10/23/17 07:44 10/21/17 04:59 Additional Labs: Accuchecks 10/21/17 10/20/17 10/20/17 11:09 20:53 15:51 POC Glucose 108 194 H 138 H Phys Exam - Physical Examination Constitutional: NAD HEENT: PERRLA, moist MMs, sclera anicteric, oral pharynx no lesions Neck: no nodes, no JVD, supple, full ROM Respiratory: no wheezing, no rales, no rhonchi, clear to auscultation bilateral Cardiovascular: RRR, no significant murmur Gastrointestinal: soft, non-tender, no distention, positive bowel sounds Musculoskeletal: no edema, pulses present external hardware left lower leg Neurological: non-focal, normal sensation, moves all 4 limbs Psychiatric: normal affect, A&O x 3 Skin: no rash Dx/Plan (1) Anxiety disorder Code(s): F41.9 - ANXIETY DISORDER, UNSPECIFIED Status: Chronic (2) DM2 (diabetes mellitus, type 2) Status: Chronic Comment: BS satisfactory. (3) Dyslipidemia Code(s): E78.5 - HYPERLIPIDEMIA, UNSPECIFIED Status: Chronic (4) Open fracture of left distal fibula Code(s): S82.832B - OTH FX UPPER AND LOW END L FIBULA, INIT FOR OPN FX TYPE I/2 Status: Acute (5) Open fracture of left distal tibia Code(s): S82.302B - UNSP FX LOWER END OF LEFT TIBIA, INIT FOR OPN FX TYPE I/2 Status: Acute - Plan DVT proph w/SCDs blood sugar and hemodynamics WNL. -: cont current care. -: Will follow. -: labs reviewed * . Review of Systems - Review of Systems Constitutional: negative: Fever, Chills, Sweats, Weakness, Malaise, Other ENT: negative: Ear Pain, Ear Discharge, Nose Pain, Nose Discharge, Nose Congestion, Mouth Pain, Mouth Swelling, Throat Pain, Throat Swelling, Other Respiratory: negative: Cough, Dry, Shortness of Breath, Hemoptysis, SOB with Excertion, Pleuritic Pain, Sputum, Wheezing Cardiovascular: negative: Chest Pain, Palpitations, Orthopnea, Paroxysmal Noc. Dyspnea, Edema, Light Headedness, Other Gastrointestinal: negative: Nausea, Vomiting, Abdominal Pain, Diarrhea, Constipation, Melena, Hematochezia, Other Genitourinary: negative: Dysuria, Frequency, Incontinence, Hematuria, Retention , Other Musculoskeletal: negative: Neck Pain, Shoulder Pain, Arm Pain, Back Pain, Hand Pain, Leg Pain, Foot Pain, Other Neurological: negative: Weakness, Numbness, Incoordination, Change in Speech, Confusion, Seizures, Other - Medications/Allergies Allergies/Adverse Reactions: Allergies Allergy/AdvReac Type Severity Reaction Status Date / Time adhesive Allergy Mild Rash Verified 10/19/17 19:06 penicillin G Allergy Verified 10/17/17 04:12 Medications: Current Medications Acetaminophen (Tylenol) 650 mg PO Q4H PRN PRN Reason: BECERRA/T> 101F/Mild Pain (1-3) Acetaminophen (Tylenol) 650 mg PO Q6H [facility] Last Admin: 10/21/17 06:31 Dose: 650 mg Bisacodyl (Dulcolax) 10 mg [place] DAILYPRN PRN PRN Reason: Constipation Cefazolin Sodium (Ancef) 2 gm SLOW IVP [phone] [facility] Stop: 10/22/17 04:01 Cyclobenzaprine HCl (Flexeril) 10 mg PO TID PRN PRN Reason: Muscle Spasm Last Admin: 10/20/17 18:16 Dose: 10 mg Dextrose/Water (Dextrose 50%) 25 gm SLOW IVP PRN PRN PRN Reason: Hypoglycemia Diphenhydramine HCl (Benadryl) 25 mg IM/IV Q3H PRN PRN Reason: Itching Diphenhydramine HCl (Benadryl) 25 mg PO Q3H PRN PRN Reason: Itching Last Admin: 10/19/17 18:51 Dose: 25 mg Enoxaparin Sodium (Lovenox) 30 mg SC 0900 [facility] Last Admin: 10/21/17 09:43 Dose: Not Given Fentanyl (Pacu-Sublimaze) 50 mcg SLOW IVP Q10MIN PRN PRN Reason: Moderate to Severe Pain (6-10) Stop: 10/21/17 18:01 Ferrous Gluconate (Fergon) 324 mg PO BID [facility] Last Admin: 10/21/17 09:44 Dose: Not Given Glucagon (Glucagon) 1 mg IM PRN PRN PRN Reason: Hypoglycemia Sodium Chloride (Normal Saline 0.9%) 1,000 mls @ 65 mls/hr IV .[id number] [facility] Last Admin: 10/20/17 18:20 Dose: 1,000 mls Insulin Human Regular (Humulin R) 0 units SC .MILD SLIDING PRN PRN Reason: Mild Correctional Scale Last Admin: 10/20/17 21:31 Dose: 2 unit Iron/Minerals/Multivitamins (Theragran M) 1 tab PO DAILY [facility] Last Admin: 10/21/17 09:44 Dose: Not Given Magnesium Hydroxide (Milk Of Magnesium) 30 ml PO DAILYPRN PRN PRN Reason: Constipation Meperidine HCl (Pacu-Demerol) 12.5 mg SLOW IVP ONE PRN PRN Reason: Shivering Stop: 10/21/17 18:01 Morphine Sulfate (Morphine Cadd) 0 mg IV INF PRN PRN Reason: Pain Last Admin: 10/20/17 02:48 Dose: 100 mg Naloxone HCl (Narcan) 0.2 mg IV Q5MIN PRN PRN Reason: RR <8 or pt obtun/unarousable Ondansetron HCl (Zofran) 4 mg IVP Q6H PRN PRN Reason: Nausea/Vomiting Last Admin: 10/19/17 10:05 Dose: 4 mg Ondansetron HCl (Pacu-Zofran) 4 mg IVP ONE PRN PRN Reason: Nausea/Vomiting Stop: 10/21/17 18:01 Dulaglutide ( (Trulicity)) 0 each SC Mo@0900 [facility] Promethazine HCl (Phenergan) 12.5 mg IM Q4H PRN PRN Reason: Nausea/Vomiting Promethazine HCl (Pacu-Phenergan) 6.25 mg SLOW IVP ONE PRN PRN Reason: Nausea/Vomiting Stop: 10/21/17 18:01 Promethazine HCl (Pacu-Phenergan) 6.25 mg IM ONE PRN PRN Reason: Nausea/Vomiting Stop: 10/21/17 18:01 Senna/Docusate Sodium (Senokot S) 2 tab PO BID [facility] Last Admin: 10/21/17 09:44 Dose: Not Given Sertraline HCl (Zoloft) 25 mg PO DAILY [facility] Last Admin: 10/21/17 09:44 Dose: Not Given Simethicone (Mylicon Chewable) 80 mg PO QID PRN PRN Reason: GAS PAIN Last Admin: 10/19/17 15:47 Dose: 80 mg Sodium Biphosphate/Sodium Phosphate (Fleet Enema) 133 ml [place] DAILYPRN PRN PRN Reason: Constipation Sodium Chloride (Flush - Normal Saline) 10 ml IVF PRN PRN PRN Reason: Saline Flush Last Admin: 10/19/17 09:06 Dose: 10 ml Throat Lozenges (Cepastat Lozenges) 1 jersey PO Q2H PRN PRN Reason: Sore Throat Zolpidem Tartrate (Ambien) 5 mg PO HSPRN PRN PRN Reason: Insomnia
--- NOTE | 2017-10-21 15:17 | OP ---
DATE OF PROCEDURE: 10/20/2017 OPERATION: 1. Open reduction internal fixation of left distal tibia fracture. 2. Open reduction internal fixation of left distal fibula fracture. PREOPERATIVE DIAGNOSIS: Open left distal tibia and fibula fracture. POSTOPERATIVE DIAGNOSIS: Open left distal tibia and fibula fracture. COMPLICATIONS: None. ESTIMATED BLOOD LOSS: Minimal. SURGEON: Issac Madera M.D. ANESTHESIA: General. NURSING HOME ADMISSIONS DIRECTOR: TONY Bowen INDICATIONS: Ms. Blanton is a 71-year-old female who has fallen. She sustained a fracture of the left tibia and fibula. She was initially placed an external fixator. She was then indicated now for ope n reduction internal fixation of the fibula and tibia fracture. Risks have been reviewed in detail. Risks include infection, pain, scarring, bleeding, nerve or vascular injury, DVT, PE, and others. S he has elected to proceed. DESCRIPTION OF PROCEDURE: Ms. Blanton was identified in the preoperative holding area. Her correct ex tremity was marked. She was carried to the operating room. She was positioned supine. General anes thesia was induced. A multidisciplinary timeout was performed. The left lower extremity was prepped and draped in sterile fashion. We began the procedure with an anterolateral incision centered between the fibula and the tibia. We dissected down through the subcutaneous tissues to the bony level. We exposed the underlying fibula fracture and tibia fracture. We pulled traction to reduce the fracture back into its anatomic positi on. We took x-ray images confirming this. At this point, we then placed an anterior lateral distal tibial plate along the tibial cortex. We placed multiple distal screws and proximal screws. We span sreedhar the bone appropriately. At this point, we again took x-ray images. We placed multiple locking s crews distally. Once we had adequate screw fixation we thoroughly irrigated the tibial wound. Next, we proceeded to the fibula fixation. Through the same incision, we placed a 6-hole 1/3 tubular plat e along the lateral cortex of the fibula. We placed 4 screws, 2 proximal, 2 distal and then a syndes mosis screw was placed. At this point, we took final images, AP and lateral. The syndesmosis was re duced. There were no further complications. We thoroughly irrigated and closed the wound with a 0 V icryl suture, 2-0 Vicryl suture and nylon for the skin. A sterile dressing and splint was placed. T he patient was then taken to the recovery room in good condition without complication. IMPLANTS: Synthes anterior lateral distal tibial plate and 1/3 tubular small fragment plate.
[2017-10-21] MEDS ORDERED: Propofol 200 MG/20 ML VIAL ONE (15:36)
[2017-10-21] MEDS ORDERED: Ondansetron HCl/PF 4 MG/2 ML Vial ONE (15:36)
[2017-10-21] MEDS ORDERED: Lidocaine 1% PF 5 ML VIAL ONE (15:36)
[2017-10-21] MEDS ORDERED: Ketorolac Tromethamine 30 MG/ML VIAL ONE (15:36)
--- NOTE | 2017-10-21 15:53 | RAD ---
RADIOGRAPH LEFT ANKLE SIX VIEWS: Date: 10-10-17 ATTN: Melody in billing, this is a six view study, not a two view study. This is being submitted for dictation on 10-21-17. Comparison: None. History: 71-year-old female with distal tibial and distal fibular fractures. FINDINGS: Fluoroscopic spot images obtained with C-arm in the OR with intrinsically low image resolution. Long lateral metallic side plate extends from the mid diaphysis to the distal metaphysis of the tibia, att ached to bone by multiple screws. Lateral metallic slide plate from junction between the proximal and middle thirds of the fibular diaphysis to the proximal aspect of the lateral malleolus, attached to the fibula with multiple screws. Fracture lucencies of the distal radial metaphysis and distal fibula , incompletely visualized. Alignment is nearly anatomical. IMPRESSION: Status post open reduction internal fixation of acute, traumatic, distal tibial and distal fibular me taphyseal fractures. POS: [facility]
[2017-10-21] MEDS ORDERED: diphenhydrAMINE 50 MG/ML VIAL IM PRN (15:56)
[2017-10-21] MEDS ORDERED: Zolpidem Tartrate 5 MG TAB PO PRN (15:56)
[2017-10-21] MEDS ORDERED: Morphine CADD 100 ML ONE (15:56)
[2017-10-21] MEDS ORDERED: diphenhydrAMINE 50 MG/ML VIAL IVP PRN (15:56)
[2017-10-21] MEDS ORDERED: Naloxone HCl 0.4 mg/ml Vial IV PRN (15:56)
[2017-10-21] MEDS ORDERED: Morphine CADD 1 MG/ML CADD IVPB PRN (15:56)
[2017-10-21] MEDS ORDERED: diphenhydrAMINE 25 MG CAP PO PRN (15:56)
[2017-10-21] MEDS ORDERED: Communication Order-Pharmacy FS SCH (16:00)
[2017-10-21] MEDS ORDERED: Non-Formulary Medication 1 EACH PO PRN (16:43)
[2017-10-21] MEDS ORDERED: HYDROmorphone 2 MG/ML VIAL SLOW IVP PRN (16:43)
[2017-10-21] MEDS ORDERED: Morphine 4 MG/ML Carpuject SLOW IVP PRN (16:43)
[2017-10-21] MEDS ORDERED: Promethazine HCl 25 MG/ML VIAL IM/IV PRN (16:43)
[2017-10-21] MEDS ORDERED: Morphine Sulfate 2 MG/ML SYRINGE SLOW IVP PRN (16:43)
[2017-10-21] MEDS ORDERED: Acetaminophen 1,000 MG in Premix Bag 1 BAG IVPB SCH (16:45)
[2017-10-21] MEDS: Sodium Chloride 0.9% 1,000 ML IV SCH (18:11)
[2017-10-21] MEDS: CEFAZOLIN/Water 2 GM/20 ML SYRINGE SLOW IVP SCH (21:01)
[2017-10-22] MEDS: Ondansetron HCl/PF 4 MG/2 ML Vial IVP PRN ×2 (00:28→07:39)
[2017-10-22] MEDS: Cyclobenzaprine 10 MG TAB PO PRN (02:26)
[2017-10-22] MEDS ORDERED: Morphine CADD 1 MG/ML CADD IVPB PRN (02:27)
[2017-10-22] MEDS ORDERED: Ketorolac Tromethamine 30 MG/ML VIAL IVP PRN (02:27)
[2017-10-22] MEDS: CEFAZOLIN/Water 2 GM/20 ML SYRINGE SLOW IVP SCH (03:48)
[2017-10-22] MEDS: Acetaminophen 325 MG TAB PO SCH ×4 (06:23→23:47)
[2017-10-22] MEDS: Sodium Chloride 0.9% 1,000 ML IV SCH ×2 (07:38→23:48)
[2017-10-22] MEDS: Ferrous Gluconate 324 MG TAB PO SCH ×2 (09:41→20:59)
[2017-10-22] MEDS: Multivitamin W/ Minerals 1 TAB PO SCH (09:42)
[2017-10-22] MEDS: Senokot S 8.6-50 MG TAB PO SCH ×2 (09:42→20:52)
[2017-10-22] MEDS: Enoxaparin Sodium 30 MG/0.3 ML SYRINGE SC SCH (09:44)
--- NOTE | 2017-10-22 09:48 | PDOC.PN ---
- Subjective Encounter Start Date: 10/22/17 Encounter Start Time: 08:30 -: old records requested/rev Patient seen and examined. No new complaints. No overnight events, pain controlled, on [employer], son bedside - Objective Resuscitation Status: Resuscitation Status FULL:Full Resuscitation MAR Reviewed: Yes Vital Signs & Weight: Vital Signs (12 hours) Temp Pulse Resp BP Pulse Ox 10/22/17 07:40 98.5 F 94 20 107/64 94 L 10/22/17 04:00 97.8 F 93 18 105/62 96 10/21/17 23:45 98.6 F 73 16 132/69 98 Weight Admit Weight 135 lb Weight 135 lb I&O: 10/21/17 10/22/17 10/23/17 06:59 06:59 06:59 Intake Total 2410 2630 Balance 2410 2630 Result Diagrams: 10/21/17 04:59 10/21/17 04:59 Additional Labs: Accuchecks 10/22/17 10/21/17 10/21/17 05:31 20:09 11:09 POC Glucose 114 H 128 H 108 10/21/17 05:25 POC Glucose 116 H Phys Exam - Physical Examination Constitutional: NAD HEENT: PERRLA, moist MMs, sclera anicteric Neck: no JVD, supple Respiratory: no wheezing, no rales, no rhonchi Cardiovascular: RRR, no significant murmur, no rub Gastrointestinal: soft, non-tender, no distention, positive bowel sounds Musculoskeletal: no edema, pulses present Neurological: non-focal, normal sensation Lymphatic: no nodes Psychiatric: normal affect, A&O x 3 Skin: no rash, normal turgor Dx/Plan (1) Open fracture of left distal fibula Code(s): S82.832B - OTH FX UPPER AND LOW END L FIBULA, INIT FOR OPN FX TYPE I/2 Status: Acute (2) Open fracture of left distal tibia Code(s): S82.302B - UNSP FX LOWER END OF LEFT TIBIA, INIT FOR OPN FX TYPE I/2 Status: Acute (3) Postoperative anemia due to acute blood loss Code(s): D62 - ACUTE POSTHEMORRHAGIC ANEMIA Status: Acute (4) Anxiety disorder Code(s): F41.9 - ANXIETY DISORDER, UNSPECIFIED Status: Chronic (5) DM2 (diabetes mellitus, type 2) Status: Chronic (6) Dyslipidemia Code(s): E78.5 - HYPERLIPIDEMIA, UNSPECIFIED Status: Chronic - Plan cont current plan of care, DVT proph w/lovenox * continue selected home medication. * medication reviewed as below * symptomatic treatment * continue [employer] * pain controlled * discussed with son. Review of Systems - Review of Systems ENT: negative: Ear Pain, Ear Discharge, Nose Pain, Nose Discharge, Nose Congestion, Mouth Pain, Mouth Swelling, Throat Pain, Throat Swelling, Other Respiratory: negative: Cough, Dry, Shortness of Breath, Hemoptysis, SOB with Excertion, Pleuritic Pain, Sputum, Wheezing Cardiovascular: negative: Chest Pain, Palpitations, Orthopnea, Paroxysmal Noc. Dyspnea, Edema, Light Headedness, Other Gastrointestinal: negative: Nausea, Vomiting, Abdominal Pain, Diarrhea, Constipation, Melena, Hematochezia, Other Genitourinary: negative: Dysuria, Frequency, Incontinence, Hematuria, Retention , Other Musculoskeletal: negative: Neck Pain, Shoulder Pain, Arm Pain, Back Pain, Hand Pain, Leg Pain, Foot Pain, Other - Medications/Allergies Allergies/Adverse Reactions: Allergies Allergy/AdvReac Type Severity Reaction Status Date / Time adhesive Allergy Mild Rash Verified 10/19/17 19:06 penicillin G Allergy Verified 10/17/17 04:12 Medications: Current Medications Acetaminophen (Tylenol) 650 mg PO Q6H [facility] Last Admin: 10/22/17 06:23 Dose: 650 mg Bisacodyl (Dulcolax) 10 mg [place] DAILYPRN PRN PRN Reason: Constipation Cyclobenzaprine HCl (Flexeril) 10 mg PO TID PRN PRN Reason: Muscle Spasm Last Admin: 10/22/17 02:26 Dose: 10 mg Dextrose/Water (Dextrose 50%) 25 gm SLOW IVP PRN PRN PRN Reason: Hypoglycemia Diphenhydramine HCl (Benadryl) 25 mg IVP Q3H PRN PRN Reason: Itching Diphenhydramine HCl (Benadryl) 25 mg PO Q3H PRN PRN Reason: Itching Diphenhydramine HCl (Benadryl) 25 mg IM Q3H PRN PRN Reason: Itching Enoxaparin Sodium (Lovenox) 30 mg SC 0900 [facility] Last Admin: 10/22/17 09:44 Dose: 30 mg Famotidine (Pepcid) 20 mg PO BID [facility] Ferrous Gluconate (Fergon) 324 mg PO BID [facility] Last Admin: 10/22/17 09:41 Dose: Not Given Glucagon (Glucagon) 1 mg IM PRN PRN PRN Reason: Hypoglycemia Sodium Chloride (Normal Saline 0.9%) 1,000 mls @ 65 mls/hr IV .[id number] [facility] Last Admin: 10/22/17 07:38 Dose: 1,000 mls Insulin Human Regular (Humulin R) 0 units SC .MILD SLIDING PRN PRN Reason: Mild Correctional Scale Last Admin: 10/20/17 21:31 Dose: 2 unit Iron/Minerals/Multivitamins (Theragran M) 1 tab PO DAILY [facility] Last Admin: 10/22/17 09:42 Dose: Not Given Ketorolac Tromethamine (Toradol) 30 mg IVP Q6H PRN PRN Reason: Pain Stop: 10/27/17 02:28 Last Admin: 10/22/17 02:40 Dose: 30 mg Magnesium Hydroxide (Milk Of Magnesium) 30 ml PO DAILYPRN PRN PRN Reason: Constipation Morphine Sulfate (Morphine Cadd) 0 mg IVPB INF PRN PRN Reason: Pain Naloxone HCl (Narcan) 0.2 mg IV Q5MIN PRN PRN Reason: Opiate Reversal Ondansetron HCl (Zofran) 4 mg IVP Q6H PRN PRN Reason: Nausea/Vomiting Last Admin: 10/22/17 07:39 Dose: 4 mg Promethazine HCl (Phenergan) 12.5 mg IM Q4H PRN PRN Reason: Nausea/Vomiting Scopolamine (Transderm Scop) 1.5 mg TD Q3D [facility] Senna/Docusate Sodium (Senokot S) 2 tab PO BID [facility] Last Admin: 10/22/17 09:42 Dose: Not Given Sertraline HCl (Zoloft) 25 mg PO DAILY [facility] Last Admin: 10/22/17 09:41 Dose: 25 mg Simethicone (Mylicon Chewable) 80 mg PO QID PRN PRN Reason: GAS PAIN Last Admin: 10/19/17 15:47 Dose: 80 mg Sodium Biphosphate/Sodium Phosphate (Fleet Enema) 133 ml [place] DAILYPRN PRN PRN Reason: Constipation Sodium Chloride (Flush - Normal Saline) 10 ml IVF PRN PRN PRN Reason: Saline Flush Last Admin: 10/22/17 03:48 Dose: 10 ml Throat Lozenges (Cepastat Lozenges) 1 jersey PO Q2H PRN PRN Reason: Sore Throat Zolpidem Tartrate (Ambien) 5 mg PO HSPRN PRN PRN Reason: Insomnia
[2017-10-22] MEDS: Famotidine 20 MG TAB PO SCH ×2 (09:52→20:59)
[2017-10-22] MEDS ORDERED: Scopolamine 1.5 mg/72 hour Patch TD SCH (10:00)
[2017-10-22] MEDS: CeleCOXIB 100 MG CAP PO SCH (20:59)
[2017-10-23] MEDS: Acetaminophen 325 MG TAB PO SCH ×4 (06:48→23:52)
[2017-10-23 07:54] LABS: #Eosinphils 0.2 thou/uL (0.0-0.7); #Lymphocytes 1.1 thou/uL (1.20-3.40); #Monocytes 0.5 thou/uL (0.11-0.59); #Neutrophils 3.1 thou/uL (1.40-6.50); %Basophils 0.3 % (0.0-1.0); %Eosinophils 3.4 % (0.0-10.0); %Lymphocytes 21.9 % (21.0-51.0); %Monocytes 9.5 % (0.0-10.0); Hematocrit 26.8 % (36.0-47.0); Mean Platelet Volume 5.7 fL (7.4-10.4); Red Blood Cell (RBC) Count 2.79 mill/uL (4.20-5.40); White Blood Cell (WBC) Count 4.8 thou/uL (4.8-10.8)
[2017-10-23] MEDS: Famotidine 20 MG TAB PO SCH ×2 (09:21→20:52)
[2017-10-23] MEDS: CeleCOXIB 100 MG CAP PO SCH ×2 (09:21→20:51)
[2017-10-23] MEDS: Ferrous Gluconate 324 MG TAB PO SCH ×2 (09:21→20:52)
[2017-10-23] MEDS: Multivitamin W/ Minerals 1 TAB PO SCH (09:21)
[2017-10-23] MEDS: Senokot S 8.6-50 MG TAB PO SCH ×2 (09:22→20:52)
[2017-10-23] MEDS: Enoxaparin Sodium 30 MG/0.3 ML SYRINGE SC SCH (09:22)
--- NOTE | 2017-10-23 11:17 | PDOC.PN ---
- Subjective Encounter Start Date: 10/23/17 Encounter Start Time: 10:30 Subjective: No new complaint.. -: Ankle pain. - Objective Resuscitation Status: Resuscitation Status FULL:Full Resuscitation Vital Signs & Weight: Vital Signs (12 hours) Temp Pulse Resp BP Pulse Ox 10/23/17 08:44 98.5 F 81 16 93 L 10/23/17 07:58 98.5 F 81 16 131/74 93 L 10/23/17 04:00 98.3 F 103 H 19 124/54 L 90 L 10/23/17 00:00 98.5 F 96 18 122/64 93 L Weight Admit Weight 135 lb Weight 135 lb I&O: 10/22/17 10/23/17 10/24/17 06:59 06:59 06:59 Intake Total 2630 3980 Balance 2630 3980 Result Diagrams: 10/23/17 07:44 10/21/17 04:59 Additional Labs: Accuchecks 10/23/17 10/22/17 10/22/17 05:34 20:51 16:28 POC Glucose 138 H 120 H 93 Phys Exam - Physical Examination Constitutional: NAD HEENT: moist MMs Neck: no JVD Respiratory: no rales Cardiovascular: RRR Gastrointestinal: soft Psychiatric: A&O x 3 Dx/Plan (1) Open fracture of left distal tibia Code(s): S82.302B - UNSP FX LOWER END OF LEFT TIBIA, INIT FOR OPN FX TYPE I/2 Status: Acute (2) Postoperative anemia due to acute blood loss Code(s): D62 - ACUTE POSTHEMORRHAGIC ANEMIA Status: Acute (3) DM2 (diabetes mellitus, type 2) Status: Chronic Plan: continue current therapy. Comment: BS satisfactory. - Plan * .
[2017-10-23] MEDS: Sodium Chloride 0.9% 1,000 ML IV SCH (16:57)
[2017-10-23] MEDS: Simethicone Chewable 80 MG TAB PO PRN (21:03)
[2017-10-23 23:59] VITALS: BP 112/65
[2017-10-24] MEDS: Sodium Chloride 0.9% 1,000 ML IV SCH (02:31)
[2017-10-24] MEDS: Acetaminophen 325 MG TAB PO SCH ×2 (06:18→11:54)
[2017-10-24] MEDS ORDERED: HYDROcodone/Acetaminophen 10/325 mg Tablet PO PRN ×2 (08:23)
[2017-10-24 08:40] VITALS: TEMP 97.8
[2017-10-24] MEDS: Senokot S 8.6-50 MG TAB PO SCH (08:46)
[2017-10-24] MEDS: Ferrous Gluconate 324 MG TAB PO SCH (08:46)
[2017-10-24] MEDS: CeleCOXIB 100 MG CAP PO SCH (08:46)
[2017-10-24] MEDS: Enoxaparin Sodium 30 MG/0.3 ML SYRINGE SC SCH (08:46)
[2017-10-24] MEDS: Famotidine 20 MG TAB PO SCH (08:46)
[2017-10-24] MEDS: Multivitamin W/ Minerals 1 TAB PO SCH (08:46)
--- NOTE | 2017-10-24 13:29 | PDOC.PN ---
- Subjective Encounter Start Date: 10/24/17 Encounter Start Time: 13:27 Subjective: feels much better. no nausea/vomiting. -: pain under control - Objective Resuscitation Status: Resuscitation Status FULL:Full Resuscitation MAR Reviewed: Yes Vital Signs & Weight: Vital Signs (12 hours) Temp Pulse Resp BP Pulse Ox 10/24/17 08:51 97.8 F 76 16 97 10/24/17 08:00 97.8 F 76 16 112/65 97 Weight Admit Weight 135 lb Weight 135 lb I&O: 10/23/17 10/24/17 10/25/17 06:59 06:59 06:59 Intake Total 3980 1160 Balance 3980 1160 Result Diagrams: 10/23/17 07:44 10/21/17 04:59 Additional Labs: Accuchecks 10/23/17 10/23/17 21:23 16:22 POC Glucose 141 H 109 Laboratory Tests 10/17/17 10/18/17 10/20/17 00:07 04:36 08:57 Hgb 12.4 10.6 L 10.4 L 10/21/17 10/23/17 04:59 07:44 Hgb 9.8 L 8.9 L Radiology Reviewed by me: Yes Phys Exam - Physical Examination Constitutional: NAD HEENT: PERRLA, moist MMs, sclera anicteric, oral pharynx no lesions Neck: no nodes, no JVD, supple, full ROM Respiratory: no wheezing, no rales, no rhonchi, clear to auscultation bilateral Cardiovascular: RRR, no significant murmur Gastrointestinal: soft, non-tender, no distention, positive bowel sounds Musculoskeletal: no edema, pulses present Neurological: non-focal, normal sensation, moves all 4 limbs Psychiatric: normal affect, A&O x 3 Skin: no rash Dx/Plan (1) Anxiety disorder Code(s): F41.9 - ANXIETY DISORDER, UNSPECIFIED Status: Chronic (2) DM2 (diabetes mellitus, type 2) Status: Chronic Comment: BS satisfactory. (3) Dyslipidemia Code(s): E78.5 - HYPERLIPIDEMIA, UNSPECIFIED Status: Chronic (4) Open fracture of left distal fibula Code(s): S82.832B - OTH FX UPPER AND LOW END L FIBULA, INIT FOR OPN FX TYPE I/2 Status: Acute (5) Open fracture of left distal tibia Code(s): S82.302B - UNSP FX LOWER END OF LEFT TIBIA, INIT FOR OPN FX TYPE I/2 Status: Acute (6) S/P ORIF (open reduction internal fixation) fracture Status: Acute (7) Postoperative anemia due to acute blood loss Code(s): D62 - ACUTE POSTHEMORRHAGIC ANEMIA Status: Acute - Plan plan discussed w/ family, out of bed/ambulate BP and Blood sugar controlled. -: H/h stable. Outpatient f/u. -: Ok to DC from IM stand point. -: if still here tomrorrow, will follow * . Review of Systems - Review of Systems Constitutional: Malaise. negative: Fever, Chills, Sweats, Weakness, Other Respiratory: negative: Cough, Dry, Shortness of Breath, Hemoptysis, SOB with Excertion, Pleuritic Pain, Sputum, Wheezing Cardiovascular: negative: Chest Pain, Palpitations, Orthopnea, Paroxysmal Noc. Dyspnea, Edema, Light Headedness, Other Gastrointestinal: negative: Nausea, Vomiting, Abdominal Pain, Diarrhea, Constipation, Melena, Hematochezia, Other Genitourinary: negative: Dysuria, Frequency, Incontinence, Hematuria, Retention , Other Musculoskeletal: negative: Neck Pain, Shoulder Pain, Arm Pain, Back Pain, Hand Pain, Leg Pain, Foot Pain, Other Neurological: negative: Weakness, Numbness, Incoordination, Change in Speech, Confusion, Seizures, Other - Medications/Allergies Allergies/Adverse Reactions: Allergies Allergy/AdvReac Type Severity Reaction Status Date / Time adhesive Allergy Mild Rash Verified 10/19/17 19:06 penicillin G Allergy Verified 10/17/17 04:12 Medications: Current Medications Acetaminophen (Tylenol) 650 mg PO Q6H [facility], [facility] Last Admin: 10/24/17 11:54 Dose: Not Given Hydrocodone Bitart/Acetaminophen ([place] 10/325) 1 tab PO Q4H PRN PRN Reason: Pain 1-5 Hydrocodone Bitart/Acetaminophen ([place] 10/325) 2 tab PO Q4H PRN PRN Reason: Pain 6-10 Last Admin: 10/24/17 09:24 Dose: 2 tab Aspirin (Ecotrin) 81 mg PO BID NAOMI Stop: 11/23/17 21:01 Bisacodyl (Dulcolax) 10 mg RI DAILYPRN PRN PRN Reason: Constipation Celecoxib (Celebrex) 100 mg PO 0800,1999 [facility], [facility] Cyclobenzaprine HCl (Flexeril) 10 mg PO TID PRN PRN Reason: Muscle Spasm Last Admin: 10/22/17 02:26 Dose: 10 mg Dextrose/Water (Dextrose 50%) 25 gm SLOW IVP PRN PRN PRN Reason: Hypoglycemia Enoxaparin Sodium (Lovenox) 30 mg SC 0900 [facility], [facility] Last Admin: 10/24/17 08:46 Dose: 30 mg Famotidine (Pepcid) 20 mg PO BID [facility] Last Admin: 10/24/17 08:46 Dose: 20 mg Ferrous Gluconate (Fergon) 324 mg PO BID [facility] Last Admin: 10/24/17 08:46 Dose: 324 mg Glucagon (Glucagon) 1 mg IM PRN PRN PRN Reason: Hypoglycemia Sodium Chloride (Normal Saline 0.9%) 1,000 mls @ 65 mls/hr IV .[id number] [facility], [facility] Last Admin: 10/24/17 02:31 Dose: Not Given Insulin Human Regular (Humulin R) 0 units SC .MILD SLIDING PRN PRN Reason: Mild Correctional Scale Last Admin: 10/20/17 21:31 Dose: 2 unit Iron/Minerals/Multivitamins (Theragran M) 1 tab PO DAILY [facility] Last Admin: 10/24/17 08:46 Dose: 1 tab Magnesium Hydroxide (Milk Of Magnesium) 30 ml PO DAILYPRN PRN PRN Reason: Constipation Scopolamine (Transderm Scop) 1.5 mg TD Q3D@1000 [facility] Last Admin: 10/22/17 10:09 Dose: 1.5 mg Senna/Docusate Sodium (Senokot S) 2 tab PO BID [facility] Last Admin: 10/24/17 08:46 Dose: Not Given Sertraline HCl (Zoloft) 25 mg PO DAILY [facility] Last Admin: 10/24/17 08:46 Dose: 25 mg Simethicone (Mylicon Chewable) 80 mg PO QID PRN PRN Reason: GAS PAIN Last Admin: 10/23/17 21:03 Dose: 80 mg Sodium Biphosphate/Sodium Phosphate (Fleet Enema) 133 ml RI DAILYPRN PRN PRN Reason: Constipation Sodium Chloride (Flush - Normal Saline) 10 ml IVF PRN PRN PRN Reason: Saline Flush Last Admin: 10/22/17 03:48 Dose: 10 ml Throat Lozenges (Cepastat Lozenges) 1 [place] PO Q2H PRN PRN Reason: Sore Throat
[2017-10-24] MEDS ORDERED: CeleCOXIB 100 MG CAP PO SCH (20:00)
[2017-10-24] MEDS ORDERED: Aspirin 81 mg Enteric Coated Tablet PO SCH (21:00)
== END 2017-10-24 14:46 | disposition home health service (06) | DRG 492 ==
LOC: ERS 23:08 → SDC/OP 10-17 00:15 → SURG A 10-17 02:52
PROVIDERS: ADMIT Orthopaedic Surgery; ATTEND Orthopaedic Surgery
PROC: 0QSK35Z Reposition Left Fibula with External Fixation Device, Percutaneous Approach (ICD-10-PCS; 2017-10-17)
PROC: 0QSH35Z Reposition Left Tibia with External Fixation Device, Percutaneous Approach (ICD-10-PCS; 2017-10-17)
PROC: 0QDH0ZZ Extraction of Left Tibia, Open Approach (ICD-10-PCS; 2017-10-17)
PROC: 0QSH04Z Reposition Left Tibia with Internal Fixation Device, Open Approach (ICD-10-PCS; principal; 2017-10-20)
PROC: 0QSK04Z Reposition Left Fibula with Internal Fixation Device, Open Approach (ICD-10-PCS; 2017-10-20)
DX: S82.392B Other fracture of lower end of left tibia, initial encounter for open fracture type I or II (principal); S82.832B Other fracture of upper and lower end of left fibula, initial encounter for open fracture type I or II; D62 Acute posthemorrhagic anemia; S91.012A Laceration without foreign body, left ankle, initial encounter; S82.872B Displaced pilon fracture of left tibia, initial encounter for open fracture type I or II; M81.0 Age-related osteoporosis without current pathological fracture; E11.9 Type 2 diabetes mellitus without complications; W10.8XXA Fall (on) (from) other stairs and steps, initial encounter; F41.9 Anxiety disorder, unspecified; E78.5 Hyperlipidemia, unspecified
CPT/HCPCS: 36415; 36416; 76001; 80048; 80053; 85025; 85730; 86850; 86900; 86901; 96361; 96374; 96375; C1713; G0390; G8978-GP-CL; G8979-GP-CK; J0131; J1200; J1650; J1815; J1885; J2001; J2250; J2270; J2274; J2405; J2704; J3010